=== PATIENT | male | born 1990 | race Caucasian/White ===

== ENCOUNTER 2019-02-14 10:02 | Emergency (ER) | payer OTHER ==
--- NOTE | 2019-02-14 10:35 | EDM.PDOC ---
<Massiel Puri - Last Filed: 02/14/19 10:46> ED HPI GENERAL MEDICAL PROBLEM - General Chief Complaint: Lower Extremity Injury/Pain Stated Complaint: LEFT ANKEL PAIN Time Seen by Provider: 02/14/19 10:06 Source of Information: Reports: Patient History Limitations: Reports: No Limitations - History of Present Illness INITIAL COMMENTS - FREE TEXT/NARRATIVE: HISTORY AND PHYSICAL: History of present illness: 28-year-old male presents to the emergency room status post jumping from his roof late Thursday night as he was locked out. He does not recall how he landed denies hitting his head however does have left ankle pain since that time. He also indicates no other joint injury or other extremity pain. Review of systems: As per history of present illness and below otherwise all systems reviewed and negative. Past medical history: As per history of present illness and as reviewed below otherwise noncontributory. Surgical history: As per history of present illness and as reviewed below otherwise noncontributory. Social history: No reported history of drug or alcohol abuse. Family history: As per history of present illness and as reviewed below otherwise noncontributory. Physical exam: General: Well-developed well-nourished 28-year-old. Alert and oriented. In no acute distress. HEENT: Atraumatic, normocephalic, pupils reactive, negative for conjunctival pallor or scleral icterus, mucous membranes moist, throat clear, neck supple, nontender, trachea midline. Lungs: Clear to auscultation, breath sounds equal bilaterally, chest nontender. Heart: S1S2, regular, negative for clicks, rubs, or JVD. Abdomen: Soft, nondistended, nontender. Pelvis: Stable nontender. Genitourinary: Deferred. Rectal: Deferred. Extremities: Moves all extremities per self without any difficulty or deficit. Discomfort with flexion but no pinpoint medial lateral malleolis. Strong pedal pulses, negative for cords or calf pain. Neurovascular unremarkable. Neuro: Awake, alert, oriented. Cranial nerves II through XII unremarkable. Cerebellum unremarkable. Motor and sensory unremarkable throughout. Exam nonfocal. Skin: Left ankle demonstrates no soft tissue swelling or ecchymosis. Gait is intact warm and dry. Notes: Patient presents today with his own crutches. X-ray shows no acute findings. Patient states he would like one week off of work , he is made aware that we are unable to provide this and that he will need to follow up with his primary care provider. Supportive care measures were reviewed and discussed. He voices understanding and is agreeable to plan of care. He denies any further questions and concerns at this time. Diagnostics: Ankle x-ray Therapeutics: None Impression: Left ankle injury Plan: #1 left ankle injury-rest ice and elevate extremity. Use crutches as needed. #2 may use Tylenol and/or ibuprofen for discomfort #3 follow up with her primary care provider as discussed. Return to the ED as needed and as discussed. Definitive disposition and diagnosis as appropriate pending reevaluation and review of above. Duration: Day(s): Location: Reports: Lower Extremity, Left Left Ankle Pain Score (Numeric/FACES): 4 - Related Data Allergies Allergy/AdvReac Type Severity Reaction Status Date / Time No Known Allergies Allergy Verified 02/14/19 10:17 Home Meds: Home Meds . [No Known Home Meds] 02/14/19 [History] Past Medical History - Past Health History Medical/Surgical History: Denies Medical/Surgical History Social & Family History - Tobacco Use Smoking Status *Q: Never Smoker - Caffeine Use Caffeine Use: Reports: Coffee, Soda - Recreational Drug Use Recreational Drug Use: No Review of Systems - Review of Systems Review Of Systems: ROS reveals no pertinent complaints other than HPI. ED EXAM, GENERAL - Physical Exam Exam: See Below (See dictation) Course - Vital Signs Last Recorded V/S: Last Vital Signs Temp 97.1 F 02/14/19 10:14 Pulse 96 02/14/19 10:14 Resp 16 02/14/19 10:14 BP 125/73 02/14/19 10:14 Pulse Ox 97 02/14/19 10:14 Departure - Departure Time of Disposition: 10:47 Disposition: Home, Self-Care 01 Clinical Impression: Left ankle injury Qualifiers: Encounter type: initial encounter Qualified Code(s): S99.912A - Unspecified injury of left ankle, initial encounter - Discharge Information Instructions: Ankle Sprain, [id number] Referrals: PCP,None [Primary Care Provider] - Forms: ED Department Discharge Additional Instructions: My general discharge The following information is given to patients seen in the emergency department who are being discharged to home. This information is to outline your options for follow-up care. We provide all patients seen in our emergency department with a follow-up referral. The need for follow-up, as well as the timing and circumstances, are variable depending upon the specifics of your emergency department visit. If you don't have a primary care physician on staff, we will provide you with a referral. We always advise you to contact your personal physician following an emergency department visit to inform them of the circumstance of the visit and for follow-up with them and/or the need for any referrals to a consulting specialist. The emergency department will also refer you to a specialist when appropriate. This referral assures that you have the opportunity for follow-up care with a specialist. All of these measure are taken in an effort to provide you with optimal care, which includes your follow-up. Under all circumstances we always encourage you to contact your private physician who remains a resource for coordinating your care. When calling for follow-up care, please make the office aware that this follow-up is from your recent emergency room visit. If for any reason you are refused follow-up, please contact the [facility] Emergency Department at and asked to speak to the emergency department charge nurse. #1 left ankle injury-rest ice and elevate extremity. Use crutches as needed. #2 may use Tylenol and/or ibuprofen for discomfort #3 follow up with her primary care provider as discussed. Return to the ED as needed and as discussed. <Parish Dumont E - Last Filed: 02/14/19 10:52> ED HPI GENERAL MEDICAL PROBLEM - History of Present Illness INITIAL COMMENTS - FREE TEXT/NARRATIVE: I personally saw this patient and agree with the above assessment. Patient did have his own crutches with him and declines any further therapeutics. Prescription for diclofenac was given. Discharge instructions were reviewed and discussed. He voices understanding and is agreeable to plan of care. Will follow up with his primary care for further work release
--- NOTE | 2019-02-14 10:48 | CR ---
EXAMINATION: Left ankle HISTORY: Injury COMPARISON: None TECHNIQUE: 3 views FINDINGS/IMPRESSION: There is no acute osseous abnormality, dislocation, or fracture. Bone mineralization and joint spaces are preserved. Mild soft tissue swelling adjacent to the left ankle and mild induration of Kager's fat pad.
== END 2019-02-14 10:50 | disposition home or self-care (01) ==
LOC: MW.ED 10:02
DX: S99.912A Unspecified injury of left ankle, initial encounter (principal); W13.2XXA Fall from, out of or through roof, initial encounter
CPT/HCPCS: 73610-26-LT; 73610-LT; 99283; 99283-25